=== PATIENT | female | born 1960 | race Caucasian/White ===

== ENCOUNTER 2019-11-29 10:19 | Emergency (ER) | payer MEDICAID ==
[~2019-11-29] VITALS: Ht 152.4 cm; Wt 50.3 kg
[2019-11-29] MEDS ORDERED: RANI150T7 PO (10:31)
[2019-11-29] MEDS ORDERED: OMEP40CA12 PO (10:31)
[2019-11-29] MEDS ORDERED: singulair (10:31)
[2019-11-29] MEDS ORDERED: SODIUM CHLORIDE 0.9% 1,000 ML IV ONE (10:58)
[2019-11-29] MEDS ORDERED: ONDANSETRON HCL 4MG/2ML INJ IV STA (10:58)
[2019-11-29] MEDS ORDERED: MORPHINE SULFATE 4 MG/ML CPJ (NOT FOR IM USE) IV STA (10:58)
[2019-11-29 11:16] LABS: BASOPHILS % 0.1 % (0.0-2.0); HEMATOCRIT. 38.1 % (36.0-48.0); HEMOGLOBIN. 13.3 g/dL (12.0-16.0); LYMPHOCYTES % 10.8 % (20.0-50.0); MEAN CORPUSCULAR HEMOGLOBIN 32.3 pg (28.0-32.0); MEAN CORPUSCULAR VOLUME 92.4 fL (81.0-99.0); MEAN PLATELET VOLUME 7.8 fl (7.4-10.4); NEUTROPHILS % 83.1 % (40.0-76.0); PLATELET 188 x1000/uL (130-400); RED BLOOD CELL COUNT 4.13 mill/uL (4.2-5.4); RED CELL DISTRIBUTION WIDTH 16.9 % (11.6-14.6)
[2019-11-29 11:26] LABS: CHLORIDE 94 mEq/L (98-107)
[2019-11-29 11:43] LABS: CLARITY URINE CLEAR (CLEAR); COLOR URINE YELLOW (YELLOW); KETONES URINE TRACE (NEGATIVE); LEUKOCYTE ESTERASE URINE NEGATIVE (NEGATIVE); NITRITE URINE NEGATIVE (NEGATIVE); OCCULT BLOOD URINE NEGATIVE (NEGATIVE); PROTEIN URINE NEGATIVE (NEGATIVE); SPECIFIC GRAVITY URINE 1.023 (1.005-1.030); UROBILINOGEN URINE 0.2 E.U./dL (0.2-1.0)
[2019-11-29 13:50] VITALS: BP 128/70
== END 2019-11-29 13:54 | disposition home or self-care (01) ==
LOC: ER 10:19
DX: N20.0 Calculus of kidney (principal); J45.909 Unspecified asthma, uncomplicated; R10.32 Left lower quadrant pain; Z88.0 Allergy status to penicillin; Z88.6 Allergy status to analgesic agent; Z79.899 Other long term (current) drug therapy
CPT/HCPCS: 36415; 74176; 80053; 81003; 83690; 85025; 96374; 96375; 99284; J2270; J2405; J7030

== ENCOUNTER 2019-12-05 15:51 | Inpatient (IN) | payer MEDICAID ==
[2019-12-04] MEDS: IPRATROPIUM/ALBUTEROL 0.5-3(2.5)MG/3ML NEB HHN SCH (12:00)
[~2019-12-05] VITALS: Ht 152.4 cm; Wt 51.7 kg
[~2019-12-05 15:51] MED LIST: OMEP40CA12 PO; RANI150T7 PO; singulair
[2019-12-05] MEDS ORDERED: mapap (16:24)
[2019-12-05 17:33] LABS: BASOPHILS % 0.8 % (0.0-2.0); EOSINOPHILS % 0.7 % (0.0-5.0); HEMATOCRIT. 35.8 % (36.0-48.0); HEMOGLOBIN. 12.8 g/dL (12.0-16.0); LYMPHOCYTES % 18.6 % (20.0-50.0); MEAN CORPUSCULAR HEMOGLOBIN 32.6 pg (28.0-32.0); MEAN CORPUSCULAR VOLUME 91.6 fL (81.0-99.0); MEAN PLATELET VOLUME 7.3 fl (7.4-10.4); MONOCYTES % 13.1 % (2.0-8.0); NEUTROPHILS % 66.8 % (40.0-76.0); PLATELET 203 x1000/uL (130-400); RED BLOOD CELL COUNT 3.91 mill/uL (4.2-5.4); RED CELL DISTRIBUTION WIDTH 16.9 % (11.6-14.6)
[2019-12-05 17:34] LABS: CHLORIDE 85 mEq/L (98-107); INR 1.1; PROTHROMBIN TIME 11.5 sec (9.6-11.0)
[2019-12-05] MEDS ORDERED: DICYCLOMINE HCL 10MG CAPSULE PO ONE (17:45)
[2019-12-05 18:08] LABS: CLARITY URINE CLEAR (CLEAR); COLOR URINE YELLOW (YELLOW); KETONES URINE 2+ (NEGATIVE); LEUKOCYTE ESTERASE URINE NEGATIVE (NEGATIVE); NITRITE URINE NEGATIVE (NEGATIVE); OCCULT BLOOD URINE 1+ (NEGATIVE); PROTEIN URINE TRACE (NEGATIVE); SPECIFIC GRAVITY URINE 1.035 (1.005-1.030); UROBILINOGEN URINE 0.2 E.U./dL (0.2-1.0)
[2019-12-05] MEDS ORDERED: SODIUM CHLORIDE 0.9% 1,000 ML IV ONE (18:15)
[2019-12-05] MEDS ORDERED: IOHEXOL-300 100 ML BOTTLE ONE (20:43)
[2019-12-05] MEDS ORDERED: TAMS-11 MT (21:43)
[2019-12-05] MEDS ORDERED: ALBU05 IH (21:43)
[2019-12-05] MEDS ORDERED: MONT10TA21 MT (21:43)
[2019-12-05 21:45] VITALS: BP 121/55
[2019-12-05 21:59] VITALS: BP 121/55
[2019-12-05 22:00] VITALS: BP 107/73
[2019-12-05 22:30] VITALS: BP 124/67
[2019-12-05] MEDS ORDERED: ALBUTEROL 6.7GM HFA INHALER ORI PRN (22:30)
[2019-12-05] MEDS ORDERED: ACETAMINOPHEN 325MG TABLET PO PRN (22:30)
[2019-12-05] MEDS ORDERED: MORPHINE SULFATE 2 MG/ML CPJ (NOT FOR IM USE) IV PRN (22:30)
[2019-12-05 23:00] VITALS: BP 109/47
[2019-12-05 23:30] VITALS: BP 114/86
[2019-12-06] VITALS (16 sets, daily range): BP systolic 92–122; BP diastolic 54–87
[2019-12-06] MEDS: SODIUM CHLORIDE 0.9% 1,000 ML IV SCH ×2 (00:03→14:17)
[2019-12-06] MEDS: MORPHINE SULFATE 2 MG/ML CPJ (NOT FOR IM USE) IV PRN ×3 (02:41→11:47)
[2019-12-06 06:56] LABS: CHLORIDE 98 mEq/L (98-107); HEMATOCRIT. 35.4 % (36.0-48.0); HEMOGLOBIN. 12.6 g/dL (12.0-16.0); MEAN CORPUSCULAR HEMOGLOBIN 32.6 pg (28.0-32.0); MEAN CORPUSCULAR VOLUME 91.6 fL (81.0-99.0); MEAN PLATELET VOLUME 7.7 fl (7.4-10.4); PLATELET 191 x1000/uL (130-400); RED BLOOD CELL COUNT 3.86 mill/uL (4.2-5.4); RED CELL DISTRIBUTION WIDTH 16.8 % (11.6-14.6)
[2019-12-06 07:09] LABS: CREATINE KINASE 52 IU/L (26-192)
[2019-12-06 07:11] LABS: CREATINE KINASE MB FRACTION < 1.0 ng/mL (0.5-3.6)
[2019-12-06] MEDS: ENOXAPARIN 40MG/0.4ML SYR SUBCUT SCH (08:10)
[2019-12-06] MEDS: IPRATROPIUM/ALBUTEROL 0.5-3(2.5)MG/3ML NEB HHN SCH ×2 (08:20→20:16)
[2019-12-06 11:53] LABS: ATYPICAL LYMPHOCYTES 1
[2019-12-06 11:54] LABS: PLATELET ESTIMATE NORMAL
[2019-12-06] MEDS: SIMETHICONE 80MG TABLET CHEW PO PRN ×2 (14:16→20:42)
[2019-12-06 15:44] LABS: CREATINE KINASE 44 IU/L (26-192)
[2019-12-06] MEDS: MONTELUKAST SODIUM 10MG TABLET PO SCH (17:15)
[2019-12-07] VITALS: BP 120/79
[2019-12-07 00:15] LABS: CREATINE KINASE 36 IU/L (26-192)
[2019-12-07] MEDS: MORPHINE SULFATE 2 MG/ML CPJ (NOT FOR IM USE) IV PRN ×6 (00:19→22:42)
[2019-12-07] MEDS: IPRATROPIUM/ALBUTEROL 0.5-3(2.5)MG/3ML NEB HHN SCH ×4 (01:25→20:30)
[2019-12-07] MEDS: SIMETHICONE 80MG TABLET CHEW PO PRN ×2 (02:35→21:49)
[2019-12-07 06:08] LABS: CHLORIDE 102 mEq/L (98-107)
[2019-12-07 06:17] LABS: BASOPHILS % 0.4 % (0.0-2.0); EOSINOPHILS % 0.3 % (0.0-5.0); HEMATOCRIT. 37.2 % (36.0-48.0); LYMPHOCYTES % 13.9 % (20.0-50.0); MEAN CORPUSCULAR HEMOGLOBIN 32.4 pg (28.0-32.0); MEAN CORPUSCULAR VOLUME 92.6 fL (81.0-99.0); MEAN PLATELET VOLUME 7.8 fl (7.4-10.4); MONOCYTES % 9.9 % (2.0-8.0); NEUTROPHILS % 75.5 % (40.0-76.0); PLATELET 193 x1000/uL (130-400); RED BLOOD CELL COUNT 4.02 mill/uL (4.2-5.4); RED CELL DISTRIBUTION WIDTH 17.3 % (11.6-14.6)
[2019-12-07 08:00] VITALS: BP 101/65
[2019-12-07] MEDS: OMEPRAZOLE 20MG CAPSULE EXTENDED RELEASE PO SCH (08:05)
[2019-12-07] MEDS ORDERED: POTASSIUM CHLORIDE 20MEQ TABLET SR PO SCH (09:15)
[2019-12-07] MEDS: ENOXAPARIN 40MG/0.4ML SYR SUBCUT SCH (09:24)
[2019-12-07] MEDS: SODIUM CHLORIDE 0.9% 1,000 ML IV SCH ×2 (09:25→23:37)
[2019-12-07 12:00] VITALS: BP 113/64
[2019-12-07] MEDS ORDERED: VANCOMYCIN HCL 1 GM/VIAL PO SCH (12:00)
[2019-12-07] MEDS ORDERED: VANCOMYCIN HCL 1000 MG/20 ML ORAL PO SCH (14:00)
[2019-12-07 16:00] VITALS: BP 106/68
[2019-12-07] MEDS: MONTELUKAST SODIUM 10MG TABLET PO SCH (18:03)
[2019-12-07] MEDS: VANCOMYCIN HCL 1000 MG/20 ML ORAL PO SCH ×2 (18:04→23:32)
[2019-12-07] MEDS ORDERED: HYDROCODONE/ACETAMINOPHEN 5/325MG TABLET PO PRN (19:45)
[2019-12-07 20:00] VITALS: BP 100/72
[2019-12-08] VITALS: BP 97/58
[2019-12-08] MEDS: IPRATROPIUM/ALBUTEROL 0.5-3(2.5)MG/3ML NEB HHN SCH (02:55)
[2019-12-08 04:00] VITALS: BP 95/50
[2019-12-08 05:16] VITALS: BP 102/55
[2019-12-08] MEDS: VANCOMYCIN HCL 1000 MG/20 ML ORAL PO SCH ×2 (05:52→12:39)
[2019-12-08] MEDS: OMEPRAZOLE 20MG CAPSULE EXTENDED RELEASE PO SCH (05:52)
[2019-12-08] MEDS: MORPHINE SULFATE 2 MG/ML CPJ (NOT FOR IM USE) IV PRN ×2 (05:53→12:40)
[2019-12-08 06:13] LABS: CHLORIDE 104 mEq/L (98-107)
[2019-12-08 06:20] LABS: BASOPHILS % 0.9 % (0.0-2.0); EOSINOPHILS % 1.6 % (0.0-5.0); HEMATOCRIT. 37.5 % (36.0-48.0); HEMOGLOBIN. 12.8 g/dL (12.0-16.0); LYMPHOCYTES % 42.2 % (20.0-50.0); MEAN CORPUSCULAR HEMOGLOBIN 31.9 pg (28.0-32.0); MEAN CORPUSCULAR VOLUME 93.6 fL (81.0-99.0); MEAN PLATELET VOLUME 7.8 fl (7.4-10.4); MONOCYTES % 13.8 % (2.0-8.0); NEUTROPHILS % 41.5 % (40.0-76.0); PLATELET 185 x1000/uL (130-400); RED CELL DISTRIBUTION WIDTH 17.8 % (11.6-14.6)
[2019-12-08 08:00] VITALS: BP 124/78
[2019-12-08] MEDS ORDERED: POTASSIUM CHLORIDE 20MEQ TABLET SR PO NR (08:16)
[2019-12-08] MEDS: ENOXAPARIN 40MG/0.4ML SYR SUBCUT SCH (08:47)
[2019-12-08] MEDS: SIMETHICONE 80MG TABLET CHEW PO PRN (10:16)
[2019-12-08 13:47] VITALS: BP 119/60
== END 2019-12-08 14:50 | disposition home or self-care (01) | DRG 248 ==
LOC: ER 15:51 → 5EST 19:01 → ENRESERV 20:02 → 5EST 12-06 01:28 → 5WST 12-08 04:43
PROVIDERS: ADMIT Internal Medicine; ATTEND Internal Medicine
DX: A04.72 Enterocolitis due to Clostridium difficile, not specified as recurrent (principal); E87.1 Hypo-osmolality and hyponatremia; K76.89 Other specified diseases of liver; E86.0 Dehydration; J45.909 Unspecified asthma, uncomplicated; K57.90 Diverticulosis of intestine, part unspecified, without perforation or abscess without bleeding; D72.819 Decreased white blood cell count, unspecified; D75.89 Other specified diseases of blood and blood-forming organs; K59.00 Constipation, unspecified; K29.70 Gastritis, unspecified, without bleeding; Z86.19 Personal history of other infectious and parasitic diseases; Z88.0 Allergy status to penicillin; Z88.6 Allergy status to analgesic agent
CPT/HCPCS: 36415; 71045; 74177; 76700; 80048; 80053; 81003; 82550; 82553; 84484; 85025; 87015; 87045; 87427; 87493; 94640; 99291; J1650; J2270; J3370; Q9967

== ENCOUNTER 2020-01-04 00:39 | Emergency (ER) | payer MEDICAID ==
[~2020-01-04] VITALS: Ht 152.4 cm; Wt 48.0 kg
[~2020-01-04 00:39] MED LIST changes: +ALBU05 IH; +MONT10TA21 MT; -RANI150T7 PO; +TAMS-11 MT; +mapap
[2020-01-04] MEDS ORDERED: ACETAMINOPHEN 325MG TABLET PO ONE (01:45)
[2020-01-04 02:20] LABS: CLARITY URINE CLEAR (CLEAR); COLOR URINE YELLOW (YELLOW); KETONES URINE NEGATIVE (NEGATIVE); LEUKOCYTE ESTERASE URINE 1+ (NEGATIVE); NITRITE URINE NEGATIVE (NEGATIVE); OCCULT BLOOD URINE NEGATIVE (NEGATIVE); PH URINE 6.5 (4.5-8.0); PROTEIN URINE NEGATIVE (NEGATIVE); SPECIFIC GRAVITY URINE 1.014 (1.005-1.030); UROBILINOGEN URINE 0.2 E.U./dL (0.2-1.0)
[2020-01-04 02:42] LABS: BASOPHILS % 0.5 % (0.0-2.0); EOSINOPHILS % 0.6 % (0.0-5.0); HEMOGLOBIN. 12.2 g/dL (12.0-16.0); LYMPHOCYTES % 21.1 % (20.0-50.0); MEAN CORPUSCULAR VOLUME 94.6 fL (81.0-99.0); MEAN PLATELET VOLUME 7.9 fl (7.4-10.4); MONOCYTES % 1.8 % (2.0-8.0); PLATELET 173 x1000/uL (130-400)
[2020-01-04 02:55] LABS: CHLORIDE 101 mEq/L (98-107)
[2020-01-04] MEDS ORDERED: LEVOFLOXACIN 750MG PREMIX 150 ML IV ONE (03:15)
[2020-01-04] MEDS ORDERED: LEVOFLOXACIN 250MG TABLET PO ONE (03:15)
[2020-01-04] MEDS ORDERED: TRAMADOL 50MG TABLET PO ONE (03:45)
[2020-01-04 04:04] VITALS: BP 127/78
== END 2020-01-04 04:07 | disposition home or self-care (01) ==
LOC: ER 00:39
DX: G89.29 Other chronic pain (principal); R10.30 Lower abdominal pain, unspecified; N39.0 Urinary tract infection, site not specified; E87.1 Hypo-osmolality and hyponatremia; J45.909 Unspecified asthma, uncomplicated
CPT/HCPCS: 36415; 71045; 74176; 80053; 81003; 85025; 99285